=== PATIENT | female | born 1960 | race Caucasian/White ===

== ENCOUNTER 2018-06-22 15:50 | Emergency (ER) | payer BC ==
[~2018-06-22] VITALS: Ht 162.6 cm; Wt 140.0 kg
[2018-06-22] MEDS ORDERED: NORCO1 TA1 PO (16:31)
[2018-06-22] MEDS ORDERED: LISINOPRIL10 MG PO (16:32)
[2018-06-22 16:38] LABS: HEMATOCRIT 46.1 % (37.0-47.0); HEMOGLOBIN 15.6 g/dl (12.0-16.0); IMMATURE GRANULOCYTES 0.4 % (0.0-5.0); MEAN CELL VOLUME 88.7 fL CALC (80.0-100.0); MEAN CORPUSCULAR HGB CONC 33.8 g/L CALC (32.0-36.0); NEUT# 6.12 thou/uL (2.00-7.15); RED BLOOD COUNT 5.2 mill/uL (4.20-5.60); RED CELL DISTRI WIDTH 12.3 % (11.5-15.5)
[2018-06-22 16:50] LABS: ALBUMIN 3.7 g/dL (3.2-5.0); ALKALINE PHOSPHATASE 145 u/l (38-126); ANION GAP 18 (6-22 (CALC)); BILIRUBIN, TOTAL 0.8 mg/dL (0.0-1.4); BUN 13 mg/dL (7-17); BUN/CREATININE RATIO 33 (12-20 (CALC)); CARBON DIOXIDE 21 mmol/l (22-30); CHLORIDE 100 mmol/l (95-108); CREATININE 0.4 mg/dL (0.5-1.0); GFR > 60 ML/MIN (>=60 (CALC)); GFR FOR AFR.AMER. > 60 ML/MIN (>=60 (CALC)); POTASSIUM 5.3 mmol/l (3.5-5.1); SGOT/AST 44 u/l (14-36); SODIUM 134 mmol/l (137-146); TOTAL PROTEIN 7.1 g/dL (6.3-8.2)
[2018-06-22] MEDS ORDERED: VOLTAREN - GENE75 MG PO (17:31)
[2018-06-22] MEDS ORDERED: METFORMIN HCL1000 M1 PO (17:31)
[2018-06-22] MEDS ORDERED: GLIPIZIDE5 M2 PO (17:31)
[2018-06-22 17:50] VITALS: BP 140/78
== END 2018-06-22 17:50 | disposition home or self-care (01) | DRG 554 ==
LOC: ED 15:50
PROVIDERS: Family Medicine
DX: M19.072 Primary osteoarthritis, left ankle and foot (principal); E11.9 Type 2 diabetes mellitus without complications; I10 Essential (primary) hypertension